=== PATIENT | male | born 1970 | race Caucasian/White ===

== ENCOUNTER 2020-01-27 14:12 | Emergency (ER) | payer SELFPAY ==
[~2020-01-27] VITALS: Ht 177.8 cm; Wt 83.9 kg
[2020-01-27] MEDS ORDERED: DIAZEPAM 5 MG TAB PO SCH (15:00)
[2020-01-27] MEDS ORDERED: HYDROCODONE/APAP 5MG-325MG TAB PO ONE (15:00)
[2020-01-27] MEDS ORDERED: LIDOCAINE 4% PATCH TP SCH (15:00)
[2020-01-27] MEDS ORDERED: ULTRAM50 MG PO (16:22)
== END 2020-01-27 17:07 | disposition home or self-care (01) ==
LOC: ER 15:52
DX: M54.5 Low back pain (principal); X50.1XXA Overexertion from prolonged static or awkward postures, initial encounter; K57.90 Diverticulosis of intestine, part unspecified, without perforation or abscess without bleeding; K76.9 Liver disease, unspecified; K40.90 Unilateral inguinal hernia, without obstruction or gangrene, not specified as recurrent; F17.210 Nicotine dependence, cigarettes, uncomplicated
CPT/HCPCS: 74176; 99283